=== PATIENT | female | born 1980 | race Two or more races ===

== ENCOUNTER 2022-04-25 23:21 | Inpatient (IN) | payer MEDICARE, MEDICAID ==
[~2022-04-25] VITALS: Ht 162.6 cm; Wt 77.3 kg
[2022-04-25] MEDS ORDERED: FAMOTIDINE (10MG/ML) 2ML VL IV ONE (23:45)
[2022-04-25] MEDS ORDERED: diphenhdrAMINE HCL 50 MG/1 ML VL IV ONE (23:45)
[2022-04-25] MEDS ORDERED: methylPREDNISolone SOD SUCC 125 MG/2 ML VL IV ONE (23:45)
[2022-04-26 00:21] LABS: Basophils # (auto) 0 10 ^3/uL (0-0.2); Basophils % (auto) 0.5 % (0.0-2.0); Eosinophils # (auto) 0.1 10 ^3/uL (0-0.8); Eosinophils % (auto) 1.8 % (0.0-7.0); Hematocrit 39.2 % (36.0-46.0); Hemoglobin 13.6 g/dL (12.2-16.2); Lymphocytes # (auto) 1.5 10 ^3/uL (0.4-5.4); Lymphocytes % (auto) 23.6 % (10.0-50.0); Mean Corpuscular Hemoglobin 30.3 pg (28.0-32.0); Mean Corpuscular Hgb Conc. 34.7 g/dL (32.0-36.0); Mean Corpuscular Volume 87.1 fL (80.0-100.0); Monocytes # (auto) 0.5 10 ^3/uL (0-1.3); Monocytes % (auto) 7.4 % (0.0-12.0); Neutrophils # (auto) 4.2 10 ^3/uL (1.6-8.6); Neutrophils % (auto) 66.7 % (37.0-80.0); Red Cell Distribution Width 13.9 % (11.8-14.3); White Blood Cell 6.2 10^3/uL (4.4-10.8)
[2022-04-26 00:37] LABS: Albumin 3.6 g/dL (3.4-5.0); Calcium 9.7 mg/dL (8.5-10.1); Potassium 4.2 mmol/L (3.5-5.1)
[2022-04-26 00:39] LABS: BUN/Creatinine Ratio 13.2
[2022-04-26 00:40] LABS: Lactic Acid w/Reflex 2.8 mmol/L (0.4-2.0)
[2022-04-26 00:42] LABS: Bilirubin, Total 1.3 mg/dL (0.2-1.0); Total Protein 7.2 g/dL (6.4-8.2)
[2022-04-26] MEDS ORDERED: SODIUM CHLORIDE 0.9% 500 ML IV ONE (05:30)
[2022-04-26] MEDS ORDERED: ACETAMINOPHEN 325 MG TAB PO PRN (05:30)
[2022-04-26] MEDS ORDERED: BACLOFEN 10 MG TAB PO PRN (05:30)
[2022-04-26] MEDS ORDERED: DEXTROSE (50%) 50ML SYRG IV PRN (05:30)
[2022-04-26] MEDS ORDERED: ONDANSETRON HCL 4 MG/2 ML VIAL IV PRN (05:30)
[2022-04-26] MEDS ORDERED: diphenhdrAMINE HCL 25 MG CAP PO PRN (05:30)
[2022-04-26] MEDS ORDERED: LEVOTHYROXINE SODIUM 25 MCG TAB PO SCH (07:00)
[2022-04-26] MEDS ORDERED: InsuLIN REG 1unit/0.01ml Soln (100units/ml) SC SCH (07:00)
[2022-04-26] MEDS ORDERED: ACCU-CHEK COMFORT CURVE STRIP VI SCH (07:00)
[2022-04-26 08:00] VITALS: BP 90/56
[2022-04-26] MEDS ORDERED: PREGABALIN 25 MG CAP PO SCH (10:00)
[2022-04-26] MEDS ORDERED: ENOXAPARIN SOD 40 MG/0.4 ML SYRINGE SC SCH (10:00)
[2022-04-26] MEDS ORDERED: FAMOTIDINE (10MG/ML) 2ML VL IV SCH (10:00)
[2022-04-26] MEDS ORDERED: METHADONE HCL 10 MG TAB PO SCH (10:00)
[2022-04-27 11:30] LABS: Hepatitis A Ab IgM Negative
[2022-04-27 11:31] LABS: Hepatitis B Core IgM Negative; Hepatitis C Antibody Negative (Negative)
== END 2022-04-27 09:37 | disposition left against medical advice (07) | DRG 916 ==
LOC: ER 23:21 → OVERFLOW 04-26 05:23
PROVIDERS: ADMIT Nurse Practitioner; ATTEND Student in an Organized Health Care Education/Training Program
DX: T78.3XXA Angioneurotic edema, initial encounter (principal); G82.20 Paraplegia, unspecified; E11.9 Type 2 diabetes mellitus without complications; G89.4 Chronic pain syndrome; R74.01 Elevation of levels of liver transaminase levels; Z53.29 Procedure and treatment not carried out because of patient's decision for other reasons; Z20.822 Contact with and (suspected) exposure to COVID-19; Z88.8 Allergy status to other drugs, medicaments and biological substances
CPT/HCPCS: 36415; 71045; 76705; 80053; 80074; 83605; 83690; 84484; 85025; 87426; 96361; 96374; 96375; G0378; J1815; J3490